=== PATIENT | male | born 1960 | race Caucasian/White ===

== ENCOUNTER 2022-05-21 04:21 | Day surgery (SDC) | payer BC, OTHER ==
[2022-05-20 12:31] VITALS: BMI 34.6
[2022-05-21] MEDS ORDERED: LIDOCAINE HCL 2% JELLY (5 ML/TUBE) ONE (14:06)
[2022-05-21] MEDS ORDERED: LIDOCAINE HCL 2% JELLY 11 ML TP ONE (14:07)
[2022-05-21] MEDS ORDERED: ACETAMINOPHEN 1000 MG/100 ML BAG IVPB ONE (14:33)
[2022-05-21] MEDS ORDERED: PROPOFOL 20 ML ONE (14:35)
[2022-05-21] MEDS ORDERED: FENTANYL CITRATE/PF 50 MCG/ML VIAL ONE (14:35)
[2022-05-21] MEDS ORDERED: ONDANSETRON 4 MG/2 ML VIAL ONE (14:35)
[2022-05-21] MEDS ORDERED: LIDOCAINE HCL/PF 2% SDV 5ML VIAL ONE (14:36)
[2022-05-21] MEDS ORDERED: ceFAZolin SODIUM 1 GM VIAL IVPB ONE (14:41)
[2022-05-21] MEDS ORDERED: ceFAZolin SODIUM 1 GM VIAL ONE (14:43)
[2022-05-21] MEDS ORDERED: DEXTROSE 5%-0.45% SALINE 1,000 ML IV SCH (14:45)
[2022-05-21] MEDS ORDERED: IBUPROFEN 800 MG/8 ML IJ IVPB SCH (14:45)
[2022-05-21] MEDS ORDERED: oxyCODONE HCL 5 MG TABLET PO PRN ×2 (15:08)
[2022-05-21] MEDS ORDERED: FENTANYL CITRATE/PF 50 MCG/ML VIAL IVPUSH PRN (15:08)
[2022-05-21] MEDS ORDERED: ONDANSETRON 4 MG/2 ML VIAL IVPUSH PRN (15:08)
[2022-05-21] MEDS ORDERED: PROMETHAZINE HCL 25 MG/1 ML VIAL IVPUSH PRN (15:08)
[2022-05-21] MEDS ORDERED: LACTATED RINGERS SOLUTION 1,000 ML IV SCH (15:15)
[2022-05-21] MEDS ORDERED: ACETAMINOPHEN INJECTION 100 ML IVPB ONE (15:18)
[2022-05-21 16:49] VITALS: RESP 18
[2022-05-21 17:39] VITALS: BP 117/75; PULSE 60; TEMP 97.1
== END 2022-05-21 17:40 | disposition home or self-care (01) ==
LOC: JASU-SURG 04:21
PROVIDERS: ATTEND Urology
PROC: 0T7D8DZ Dilation of Urethra with Intraluminal Device, Via Natural or Artificial Opening Endoscopic (ICD-10-PCS; principal; 2022-05-21 15:30)
DX: N40.1 Benign prostatic hyperplasia with lower urinary tract symptoms (principal); R35.0 Frequency of micturition; R39.198 Other difficulties with micturition
CPT/HCPCS: C9740; L8699; 82962; 94760